=== PATIENT | male | born 1970 | race Caucasian/White ===

== ENCOUNTER 2023-03-25 19:22 | Emergency (ER) | payer SELFPAY ==
[2023-03-25 19:39] LABS: BASOPHILS PERCENT AUTO 0.3 % (0.2-1.2); EOSINOPHILS ABSOLUTE AUTO 0.3 x10^3/uL (0.0-0.5); EOSINOPHILS PERCENT AUTO 2.6 % (0.0-4.0); HEMOGLOBIN 12.2 g/dL (14.0-18.0); IMMATURE GRAN ABSOLUTE AUTO 0.13 x10^3/uL (0.00-0.07); LYMPHOCYTES PERCENT AUTO 60.4 % (25.0-50.0); MEAN CORPUSCULAR HEMOGLOBIN 28.6 pg (26.0-32.0); MEAN CORPUSCULAR VOLUME 86.9 fL (78.0-93.0); MONOCYTES PERCENT AUTO 9.4 % (2.0-11.0); NEUTROPHILS ABSOLUTE AUTO 2.8 x10^3/uL (1.8-7.7); NEUTROPHILS PERCENT AUTO 26.1 % (50.0-80.0); PLATELET COUNT,PLT 94 x10^3/uL (130-400); RED BLOOD CELL COUNT 4.26 x10^6/uL (4.5-6.0); WHITE BLOOD CELL COUNT,WBC 10.8 x10^3/uL (4.0-10.0)
[2023-03-25 19:56] LABS: LYMPHOCYTES ABSOLUTE AUTO 6.5 x10^3/uL (1.0-4.8)
[2023-03-25 20:00] LABS: BLOOD UREA NITROGEN,BUN 10 mg/dL (7-18); CARBON DIOXIDE,CO2 17 mmol/L (21-32); CHLORIDE,CL 104 mmol/L (98-107); CREATININE 1.1 mg/dL (0.70-1.30); GLUCOSE RANDOM 210 mg/dL (70-99); POTASSIUM,K 4.6 mmol/L (3.5-5.1); SODIUM,NA 136 mmol/L (136-145)
[2023-03-25 20:01] LABS: ANION GAP 19.6 mmol/L (5-15); ESTIMATED GFR 80 mL/min (>=60)
[2023-03-25 20:07] LABS: CALCIUM 7.9 mg/dL (8.5-10.1)
== END 2023-03-25 22:12 | disposition expired ==
LOC: VM.ED 19:22
DX: I21.9 Acute myocardial infarction, unspecified (principal)
CPT/HCPCS: 31500; 36415; 80048; 84484; 85025; 92950; 96374; 96375; 99285; 99285-25